=== PATIENT | male | born 1965 | race Caucasian/White ===

== ENCOUNTER 2016-05-09 17:38 | Emergency (ER) | payer MEDICAID ==
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
== END 2016-05-09 19:30 | disposition home or self-care (01) ==
LOC: ER 17:38
DX: S16.1XXA Strain of muscle, fascia and tendon at neck level, initial encounter (principal); I10 Essential (primary) hypertension; V49.88XA Car occupant (driver) (passenger) injured in other specified transport accidents, initial encounter; Y93.89 Activity, other specified; Y92.488 Other paved roadways as the place of occurrence of the external cause; Y99.8 Other external cause status
CPT/HCPCS: 70450-TC; 72125-TC; Z7502; Z7610